=== PATIENT | male | born 1965 | race Caucasian/White ===

== ENCOUNTER 2020-08-20 10:01 | Outpatient (CLI) | payer BC, SELFPAY ==
[2020-08-22 14:33] LABS: Patient Race White; SARS-CoV-2 RNA Undetected (Undetected); SARS-CoV-2 Specimen Source Nasopharynx
== END 2020-08-20 10:21 ==
PROVIDERS: PCP Family Medicine; Visit Provider Family Medicine
DX: Z11.59 Encounter for screening for other viral diseases (principal)
CPT/HCPCS: U0003

== ENCOUNTER 2022-09-23 05:37 | Emergency (ER) | payer BC, SELFPAY ==
--- NOTE | 2022-09-23 05:30 | RT.EKG_ITS ---
APPROVED REPORT Exam: Resting ECG Reason for Exam: sob Patient Location: E HR:93 bpm ECG Measurements Heart Rate 93 AXIS ID 172 P 36 QRSd 96 QRS 31 QT 354 T 60 QTc 424 Conclusion Sinus rhythm...normal P axis, V-rate 60- 99 Paired ventricular premature complexes...sequence of 2 V complexes sinus rhythm, normal axis, nomral intervals, non ischemic
[2022-09-23 05:45] VITALS: BP 135/63; PULSE 86; RESP 26; TEMP 36.3; O2SAT 94
--- NOTE | 2022-09-23 06:57 | ED.GENADUL_ITS ---
Discharge Plan Disposition Patient Disposition: Home Condition: Improving Discharge Details Clinical Impression: Cough Primary Care Provider: Kamran Tang ED Provider: Amarjit Lopez Home Meds and New Rx's Prescriptions: New azithromycin 250 mg tablet 250 mg PO DAILY 5 Days Qty: 6 0RF Rx Instructions: take 500mg (two tabs) on day one; then take by 250mg (one tab) per day on the following four days amoxicillin 500 mg capsule 500 mg PO BID 7 Days Qty: 14 0RF No Action albuterol 90 mcg/actuation Aerosol INHALATION lisinopril-hydrochlorothiazide 10-12.5 mg Tablet 1 tab PO DAILY lovastatin 20 mg Tablet 20 mg PO DAILY fluoxetine 20 mg Capsule 20 mg PO DAILY Discharge Instructions Instructions: Acute Cough (ED) Additional Instructions: Please follow-up with your primary care physician. Please return to the emergency department for any worsening symptoms. Medical Decision Making 57-year-old male presents with over 1 week of productive cough, subjective fevers. No respiratory distress hemodynamically stable not hypoxic. Consider viral syndrome versus superimposed pneumonia. Less likely cardiac in nature. Will obtain basic labs chest x-ray COVID flu RSV screening. Likely discharge home. 9: 14 patient resting comfortably feeling much better after dexamethasone. Likely resolving respiratory illness. However given productive sputum and cough over a week we will start on empiric antibiotics. Home care instructions and return precautions given Sign Out No HPI General Date/Time Provider Initiated Documentation: 09/23/22 05:37 . HPI Narrative: 57-year-old male presents with over 1 week of cough now productive of yellow- green sputum. Endorses subjective fevers. Related Data Home Medications Medication Instructions Recorded Confirmed albuterol 90 mcg/actuation aerosol mcg inhalation 09/23/22 inhaler amoxicillin 500 mg capsule 500 mg PO BID 7 days #14 caps 09/23/22 azithromycin 250 mg tablet 250 mg PO DAILY 5 days #6 tabs 09/23/22 fluoxetine 20 mg capsule 20 mg PO DAILY 09/23/22 09/23/22 lisinopril 10 1 tab PO DAILY 09/23/22 09/23/22 mg-hydrochlorothiazide 12.5 mg tablet lovastatin 20 mg tablet 20 mg PO DAILY 09/23/22 09/23/22 Previous Rx's Medication Instructions Recorded amoxicillin 500 mg capsule 500 mg PO BID 7 days #14 caps 09/23/22 azithromycin 250 mg tablet 250 mg PO DAILY 5 days #6 tabs 09/23/22 Allergies Allergy/AdvReac Type Severity Reaction Status Date / Time No Known Allergies Allergy Unverified 09/23/22 05:50 General Stated Complaint: [facility]Medical RAYMOND: 3 Review of Systems Narrative: Review of Systems Constitutional: negative Eyes: negative ENT: negative Cardiovascular: negative Respiratory: Cough Gastrointestinal: negative : negative Musculoskeletal: negative Skin: negative Neurologic: negative Psych: negative PFSH All Active Problems (Updated 09/23/22 @ 09:14 by Amarjit Lopez MD) Cough (Acute) Social History Smoking/Tobacco Use Status: Current every day Tobacco Type: cigarettes Smoking risk assessment performed?: Yes Substance use type: does not use Exam Narrative Exam Narrative: Physical Examination General: alert, awake, cooperative, resting comfortably, no acute distress HEENT: normocephalic, atraumatic; PERRL, EOM intact, conjunctiva normal; no nasal discharge; moist mucous membranes, oral and pharyngeal mucosa normal, tolerating secretions Neck: supple, trachea midline; full ROM Chest: normal to inspection Respiratory: normal respiratory effort, speaking in full sentences, clear to auscultation, no wheezing, rales or rhonchi Cardiac: regular rate, regular rhythm, S1S2 intact, no murmurs rubs or gallops GI: abdomen soft, non-tender, non-distended; no palpable mass or hepatosplenomegaly Skin: no lesions, rashes or trauma appreciated Neuro: AAOx3, normal speech, moving all extremities Psych: Appropriate mood and affect Course Vital Signs Vital signs: Vital Signs Temperature 36.3 C L 09/23/22 05:45 Pulse 86 09/23/22 05:45 Respiratory Rate 26 H 09/23/22 05:45 Blood Pressure 135/63 09/23/22 05:45 Pulse Oximetry 94 09/23/22 05:45 Temperature 36.3 C L 09/23/22 05:45 Temperature Source Temporal Artery Scan 09/23/22 05:45 Pulse 86 09/23/22 05:45 Respiratory Rate 26 H 09/23/22 05:45 Respiratory Effort Short of Breath 09/23/22 05:45 Blood Pressure 135/63 09/23/22 05:45 Blood Pressure Position Supine 09/23/22 05:45 Pulse Oximetry 94 09/23/22 05:45 Oxygen Delivery Method Room Air 09/23/22 05:45 Oxygen Flow Rate 0 09/23/22 05:45 Pain Level 6 09/23/22 05:45
[2022-09-23 07:43] LABS: Abs Immature Grans 0.09 10^3/uL (0.0-0.06); Absolute Basophil Count 0.04 10^3/uL (0.0-0.2); Absolute Eosinophil Count 0.24 10^3/uL (0.0-0.7); Absolute Lymphocyte Count 1.26 10^3/uL (1.2-3.4); Absolute Monocyte Count 1.36 10^3/uL (0.1-0.8); Absolute Neutrophil Count 8.98 10^3/uL (1.2-6.7); Basophils % 0.3; HCT 43.6 % (40.0-50.0); HGB 14.5 g/dL (13.5-17.5); Immature Grans % 0.8; Lymphocytes % 10.5; MCH 27.8 pg (27.0-33.0); MCHC 33.3 % (32.0-36.0); MCV 84 fL (80-95); MPV 8.7 fL (8.0-11.0); Monocytes % 11.4; Platelet Count 282 10^3/uL (130-400); RBC 5.22 10^6/uL (4.36-5.78); RDW 11.9 % (11.8-14.1); RDW-SD 36.2 fL; WBC 11.97 10^3/uL (4.4-10.8)
[2022-09-23] MEDS: Dexamethasone 10 MG/ML VIAL IVP (07:54)
--- NOTE | 2022-09-23 08:00 | DI.RAD_ITS ---
Exam(s) XR PORTABLE CHEST AP EXAM: XR PORTABLE CHEST AP CLINICAL HISTORY: productive cough TECHNIQUE: 2D digital imaging was performed of the chest. One image was obtained. An AP view was ob tained. COMPARISON: No exams were available for comparison FINDINGS: MEDIASTINUM: Normal. HEART: Normal. PULMONARY VASCULATURE: Normal. LUNGS: Clear. PLEURAL SPACE: No pleural effusion or pneumothorax. BONE:Within normal limits for the patient's age. OTHER FINDINGS:Normal. IMPRESSION: No acute pulmonary findings. DATA REPOSITORY: RADIATION DOSE DELIVERED:
[2022-09-23 08:03] LABS: ALT 324 U/L (16-63); AST 217 U/L (15-37); Albumin 3.3 g/dL (3.4-5.0); Alkaline Phosphatase 140 U/L (46-116); Anion Gap 8.9 mmol/L (3-11); BUN 11 mg/dL (7-18); Bilirubin, Total 0.8 mg/dL (0.2-1.0); CO2 26.1 mmol/L (21.0-32.0); CREATININE 1.1 mg/dL (0.70-1.30); Calcium 8.8 mg/dL (8.5-10.1); Chloride 101 mmol/L (98-107); Estimated GFR 79.28 (mL/min/1.73m2); Glucose 98 mg/dL (74-106); Potassium 3.4 mmol/L (3.5-5.1); Sodium 136 mmol/L (136-145); Total Protein 7.7 g/dL (6.4-8.2)
[2022-09-23 08:33] LABS: COVID-19 PCR Negative (Negative); Influenza A PCR Negative (Negative); Influenza B PCR Negative (Negative); RSV PCR Negative (Negative)
[2022-09-23 08:40] LABS: Source Nasopharynx
== END 2022-09-23 09:36 | disposition home or self-care (01) ==
PROVIDERS: Emergency Provider Emergency Medicine; PCP Family Medicine
DX: R05.9 Cough, unspecified (principal); R50.9 Fever, unspecified; F17.210 Nicotine dependence, cigarettes, uncomplicated; Z20.822 Contact with and (suspected) exposure to COVID-19
CPT/HCPCS: 36415; 80053; 87637; 93005; 96374; 99284; 71045; 85025; 93010; J1100